=== PATIENT | male | born 1965 | race Two or more races ===

== ENCOUNTER → 2020-12-13 | Outpatient (CLI) | payer OTHER ==
--- NOTE | 2020-12-13 10:28 | RAD ---
3 views of the lumbar spine without comparison for pain in the left thorax relating to the back for 2 months, left hip pain. FINDINGS: There is straightening of the normal lumbar lordosis. There is a very subtle superior endpl ate wedge deformity of L4. There is transitional vertebrae which is considered L6 for purposes of the se radiographs. This is fused with S1. No alignment abnormality. IMPRESSION: 1. Subtle superior endplate wedge deformity of L4 which is age indeterminate. 2. Transitional vertebral body anatomy. Electronically signed by: Sourav Graham MD (12/13/2020 10:26 AM) [id number]
--- NOTE | 2020-12-13 10:29 | RAD ---
3 views of the thoracic spine without comparison for left thorax pain, radiating to back for 2 months , left hip pain. FINDINGS: There is no fracture or acute osseous or alignment abnormality identified. Mild narrowing o f the intervertebral disc space at T12-L1. Incidentally noted are carotid artery calcifications. IMPRESSION: 1. No acute osseous or alignment abnormality. 2. Carotid artery calcifications. Electronically signed by: Sourav Graham MD (12/13/2020 10:27 AM) [id number]
== END ==
LOC: RAD 08:46
PROVIDERS: ATTEND Family Medicine
DX: M43.8X6 Other specified deforming dorsopathies, lumbar region (principal); M54.14 Radiculopathy, thoracic region; M25.552 Pain in left hip
CPT/HCPCS: 72072; 72100